=== PATIENT | female | born 1950 | race American Indian/Alaskan Native ===

== ENCOUNTER 2016-05-28 15:51 | Inpatient (IN) | payer BC ==
--- NOTE | 2016-05-28 17:41 | Emergency Department Report ---
Chief Complaint: Neck Pain/Injury Stated Complaint: SOB/NECK PAIN/CHILLS Time Seen by Provider: 05/28/16 17:22 - HPI History of Present Illness: Patient is a 66-year-old female who was sent to ED by her doctor's office Dr. Marlon Melendez to be screened for meningitis. Patient states she starts experiencing neck pain earlier today. Patient states that she is has severe chills all morning. Patient states she went to her primary care physician to be seen and was sent here to the ER. Patient denies nausea/vomiting/chest pain/shortness of breath or any other symptoms. - ROS Review of Systems: As noted in HPI - Exam Vital Signs: Vital Signs 05/28/16 16:29 Temperature 98.9 F Pulse Rate 90 Respiratory 22 Rate Blood Pressure 178/94 O2 Sat by Pulse 98 Oximetry Physical Exam: GENERAL: Alert and oriented x3, no apparent distress, Normal Gait, atraumatic. HEAD: Head is normocephalic and a-traumatic. MOUTH:Mouth is well hydrated and without lesions. Tonsils nonerythematous or swollen, Uvula midline, Tongue not elevated. Mucous membranes are moist. Posterior pharynx clear, no exudate or lesions. Patent airways. NECK: Supple. Non edematous, No carotid bruits. No lymphadenopathy or thyromegaly. No nucal rigidity. full ROM but painful, non tender to palpation. LUNGS: Symetrical with respiration, No wheezing, no rales or crackles, CTAB. HEART: S1, S2 present, regular rate and rhythm without murmur, no rubs, no gallops. ABDOMEN: No organomegaly was noted,Positive bowel sounds, soft, and non- distended. . Nontender to palpation on all Quadrants, NO CVA tenderness. MSE screening note: Focused history and physical exam performed. Due to findings the following was ordered: ED Medical Decision Making - Medical Decision Making Labs ordered. Patient waiting to be seen by ED physician. ED Disposition for MSE Condition: Stable
[2016-05-28 18:31] LABS: Basophils % (Auto) 0.4 % (0.0-1.8); Eosinophils % (Auto) 0.4 % (0.0-4.3); Hematocrit 35.2 % (30.3-42.9); Hemoglobin 11.7 gm/dl (10.1-14.3); Mean Corpuscular HGB Conc 33 % (30-34); Mean Corpuscular Hemoglobin 29 pg (28-32); Mean Corpuscular Volume 86 fl (79-97); Platelet Count 437 K/mm3 (140-440); Red Blood Count 4.07 M/mm3 (3.65-5.03); Red Cell Distribution Width 14.6 % (13.2-15.2); White Blood Count 16.5 K/mm3 (4.5-11.0)
[2016-05-28 18:42] LABS: INR 0.94 (0.87-1.13)
[2016-05-28 18:43] LABS: Partial Thromboplastin Time 32.8 Sec. (24.2-36.6)
[2016-05-28 18:54] LABS: Alanine Aminotransferase 10 units/L (7-56); Albumin 3.8 g/dL (3.9-5); Albumin/Globulin Ratio 0.9 %; Alkaline Phosphatase 102 units/L (35-129); BUN/Creatinine Ratio 16.25; Bilirubin,Total 0.4 mg/dL (0.1-1.2); Blood Urea Nitrogen 13 mg/dL (7-17); Calcium 9.2 mg/dL (8.4-10.2); Carbon Dioxide 24 mmol/L (22-30); Chloride 95.3 mmol/L (98-107); Glucose 67 mg/dL (65-100); Potassium 3.9 mmol/L (3.6-5.0); Sodium 135 mmol/L (137-145)
[2016-05-28 18:57] LABS: Anion Gap 20 mmol/L
[2016-05-29] MEDS ORDERED: ZOFRAN IV ONE (08:32)
[2016-05-29] MEDS ORDERED: MORPHINE IV ONE (08:32)
[2016-05-29] MEDS ORDERED: TORADOL IV ONE (08:34)
--- NOTE | 2016-05-29 08:38 | Emergency Department Report ---
ED Fever HPI - General Chief Complaint: Neck Pain/Injury Stated Complaint: SOB/NECK PAIN/CHILLS Time Seen by Provider: 05/29/16 08:21 Source: patient Exam Limitations: no limitations - History of Present Illness Initial Comments: 66-year-old female with a past medical history hypertension, diabetes, and hyperlipidemia presents to the hospital with complaints of chills, headache, and neck pain since yesterday a.m. Patient states she developed a headache and posterior neck pain that has gradually worsened. Pain radiates down spine. Patient having chills and reports a temperature of 98 at home. Patient was seen and evaluated by Dr. Huerta yesterday and was referred to the ED with a differential of pharyngitis, rule out meningitis secondary to neck pain, question occult bacteremia. She states she does have a cough for several days as well. No complaints of nausea, vomiting, blurred vision, focal weakness, numbness, or head trauma. ED Review of Systems ROS: Stated complaint: SOB/NECK PAIN/CHILLS Other details as noted in HPI Comment: All other systems reviewed and negative Other: Constitutional: As per HPI Eyes: No eye pain visual changes ENT: mild sob Neck: as per hpi Respiratory: Denies wheezing shortness of breath Cardiovascular: Denies chest pain, palpitations, syncope GI: Denies abdominal pain, nausea, vomiting, diarrhea : Denies dysuria Musculoskeletal: as per hpi Skin: Denies rash, lesions, erythema Neurologic: headache Psychiatric: Denies suicidal ideation, hallucinations ED Past Medical Hx - Medications Home Medications: Home Medications Medication Instructions Recorded Confirmed Last Taken Type Atorvastatin Calcium [Lipitor] 20 mg PO QHS 05/29/16 05/29/16 05/28/16 History Dulaglutide [Trulicity] 1.5 mg SQ 05/29/16 05/28/16 History HYDROcodone/APAP 5-325 [[place] 1 each PO Q6HR PRN #20 tablet 05/29/16 Unknown Rx 5/325] Ibuprofen [Motrin] 800 mg PO Q8HR PRN #30 tablet 05/29/16 Unknown Rx Levofloxacin [Levaquin] 750 mg PO QDAY #7 tablet 05/29/16 Unknown Rx Metformin HCl [Fortamet ER] 1,000 mg PO BID 05/29/16 05/29/16 05/28/16 History Valsartan/Hydrochlorothiazide 1 tab PO DAILY 05/29/16 05/29/16 05/28/16 History [Valsartan-Hctz 160-12.5 mg Tab] amLODIPine [Norvasc] 10 mg PO DAILY 05/29/16 05/29/16 05/28/16 History ED Physical Exam - General Limitations: No Limitations - Other Other exam information: General: No limitations, patient is alert in no acute distress Head exam: Atraumatic, normocephalic Eyes exam: Normal appearance, pupils equal reactive to light ENT: Moist mucous membrane, normal oropharynx, no exudate, nasal congestion Neck exam: Normal inspection, full range of motion, no meningismus, bilateral paracervical tenderness however, no nuchal rigidity Respiratory exam: Clear to auscultation bilateral, no wheezes, rales, crackles Cardiovascular: Normal rate and rhythm Abdomen: Soft, nondistended, and nontender, with normal bowel sounds, no rebound, or guarding Extremity: Full range of motion normal inspection no deformity Back: Normal Inspection, full range of motion, no tenderness Neurologic: Alert, oriented x3, cranial nerves intact, no motor or sensory deficit Psychiatric: normal affect, normal mood Skin: Warm, dry, intact ED Course Vital Signs 05/28/16 05/29/16 05/29/16 16:29 00:45 05:38 Temperature 98.9 F 98.1 F 98.0 F Pulse Rate 90 81 88 Respiratory 22 16 16 Rate Blood Pressure 178/94 Blood Pressure 156/79 146/79 [Right] O2 Sat by Pulse 98 99 100 Oximetry 05/29/16 05/29/16 05/29/16 09:11 09:15 09:21 Temperature Pulse Rate Respiratory 18 18 Rate Blood Pressure Blood Pressure [Right] O2 Sat by Pulse 93 Oximetry 05/29/16 05/29/16 09:25 10:00 Temperature Pulse Rate 67 Respiratory 18 11 L Rate Blood Pressure 148/70 Blood Pressure [Right] O2 Sat by Pulse 100 Oximetry - Reevaluation(s) Reevaluation #1: 05/29/16 11:10 pt feels better with morphine, toradol, zofran Reevaluation #2: 05/29/16 11:30 Pt remains pain free. Reoffered LP and declined. - Consultations Consultation #1: 05/29/16 10:[address] Huerta. He states the headache exam patient also had a supple neck with just some paraspinal muscle tenderness however, when she presented to his office it was too late to do further testing so he sent her to the ER for evaluation ED Medical Decision Making - Lab Data Result diagrams: 05/28/16 18:13 05/28/16 18:13 Lab Results 05/28/16 05/28/16 05/28/16 Range/Units 18:13 18:13 18:13 WBC 16.5 H (4.5-11.0) K/mm3 RBC 4.07 (3.65-5.03) M/mm3 Hgb 11.7 (10.1-14.3) gm/dl Hct 35.2 (30.3-42.9) % MCV 86 (79-97) fl MCH 29 (28-32) pg MCHC 33 (30-34) % RDW 14.6 (13.2-15.2) % Plt Count 437 (140-440) K/mm3 Lymph % (Auto) 12.5 L (13.4-35.0) % [place] % (Auto) 5.1 (0.0-7.3) % Eos % (Auto) 0.4 (0.0-4.3) % Baso % (Auto) 0.4 (0.0-1.8) % Lymph # 2.1 (1.2-5.4) K/mm3 [place] # 0.8 (0.0-0.8) K/mm3 Eos # 0.1 (0.0-0.4) K/mm3 Baso # 0.1 (0.0-0.1) K/mm3 Seg Neutrophils % 81.6 H (40.0-70.0) % Seg Neutrophils # 13.5 H (1.8-7.7) K/mm3 PT 12.5 (12.2-14.9) Sec. INR 0.94 (0.87-1.13) APTT 32.8 (24.2-36.6) Sec. Sodium 135 L (137-145) mmol/L Potassium 3.9 (3.6-5.0) mmol/L Chloride 95.3 L (98-107) mmol/L Carbon Dioxide 24 (22-30) mmol/L Anion Gap 20 mmol/L BUN 13 (7-17) mg/dL Creatinine 0.8 (0.7-1.2) mg/dL Estimated GFR > 60 ml/min BUN/Creatinine Ratio 16.25 % Glucose 67 (65-100) mg/dL Calcium 9.2 (8.4-10.2) mg/dL Total Bilirubin 0.4 (0.1-1.2) mg/dL AST 13 (5-40) units/L ALT 10 (7-56) units/L Alkaline Phosphatase 102 (35-129) units/L Total Protein 8.0 (6.3-8.2) g/dL Albumin 3.8 L (3.9-5) g/dL Albumin/Globulin Ratio 0.9 % Urine Color (Yellow) Urine Turbidity (Clear) Urine pH (5.0-7.0) Ur Specific [place] (1.003-1.030) Urine Protein (Negative) mg/dL Urine Glucose (UA) (Negative) mg/dL Urine Ketones (Negative) mg/dL Urine Blood (Negative) Urine Nitrite (Negative) Urine Bilirubin (Negative) Urine Urobilinogen (<2.0) mg/dL Ur Leukocyte Esterase (Negative) Urine WBC (Auto) (0.0-6.0) /HPF Urine RBC (Auto) (0.0-6.0) /HPF U Epithel Cells (Auto) (0-13.0) /HPF Hyaline Casts /LPF Urine Mucus /HPF 05/29/16 Range/Units 10:30 WBC (4.5-11.0) K/mm3 RBC (3.65-5.03) M/mm3 Hgb (10.1-14.3) gm/dl Hct (30.3-42.9) % MCV (79-97) fl MCH (28-32) pg MCHC (30-34) % RDW (13.2-15.2) % Plt Count (140-440) K/mm3 Lymph % (Auto) (13.4-35.0) % [place] % (Auto) (0.0-7.3) % Eos % (Auto) (0.0-4.3) % Baso % (Auto) (0.0-1.8) % Lymph # (1.2-5.4) K/mm3 [place] # (0.0-0.8) K/mm3 Eos # (0.0-0.4) K/mm3 Baso # (0.0-0.1) K/mm3 Seg Neutrophils % (40.0-70.0) % Seg Neutrophils # (1.8-7.7) K/mm3 PT (12.2-14.9) Sec. INR (0.87-1.13) APTT (24.2-36.6) Sec. Sodium (137-145) mmol/L Potassium (3.6-5.0) mmol/L Chloride (98-107) mmol/L Carbon Dioxide (22-30) mmol/L Anion Gap mmol/L BUN (7-17) mg/dL Creatinine (0.7-1.2) mg/dL Estimated GFR ml/min BUN/Creatinine Ratio % Glucose (65-100) mg/dL Calcium (8.4-10.2) mg/dL Total Bilirubin (0.1-1.2) mg/dL AST (5-40) units/L ALT (7-56) units/L Alkaline Phosphatase (35-129) units/L Total Protein (6.3-8.2) g/dL Albumin (3.9-5) g/dL Albumin/Globulin Ratio % Urine Color Yellow (Yellow) Urine Turbidity Clear (Clear) Urine pH 5.0 (5.0-7.0) Ur Specific [place] 1.015 (1.003-1.030) Urine Protein <15 mg/dl (Negative) mg/dL Urine Glucose (UA) Neg (Negative) mg/dL Urine Ketones Neg (Negative) mg/dL Urine Blood Neg (Negative) Urine Nitrite Neg (Negative) Urine Bilirubin Neg (Negative) Urine Urobilinogen < 2.0 (<2.0) mg/dL Ur Leukocyte Esterase Mod (Negative) Urine WBC (Auto) 12.0 H (0.0-6.0) /HPF Urine RBC (Auto) 7.0 (0.0-6.0) /HPF U Epithel Cells (Auto) 6.0 (0-13.0) /HPF Hyaline Casts 1 /LPF Urine Mucus Few /HPF strep neg, influenza neg - Radiology Data Radiology results: report reviewed (ct head neg) cxr: neg - Medical Decision Making At this time I do not believe the patient has meningitis especially bacterial meningitis. She is nontoxic appearing. No documented fever at home or here. Patient does not have nuchal rigidity just some musculoskeletal paracervical spinal muscle pain. I discussed pros and cons of lumbar puncture and family is in agreement for no LP at this time. Patient has No neurologic symptoms or vomiting. Headache was not severe. Patient does have some cough and URI symptoms as well. Patient does have a slight leukocytosis and after consultation with her primary care doctor antibiotics will be prescribed. Close follow-up and evaluation will be recommended. - Differential Diagnosis SAH, viral syndrome, meningitis, pneumonia Critical Care Time: No Critical care attestation.: If time is entered above; I have spent that time in minutes in the direct care of this critically ill patient, excluding procedure time. ED Disposition Clinical Impression: Viral syndrome, Ethmoid sinusitis Disposition: DISCHARGED TO HOME OR SELFCARE Is pt being admited?: No Does the pt Need Aspirin: No Condition: Stable Instructions: Viral Syndrome (ED), Sinusitis (ED) Additional Instructions: You have provided a copy of your laboratory results and CT results. You have declined a lumbar puncture at this time. Take the medications as prescribed. However, if symptoms worsen please go to the closest ER and presents to the provided results from urine ER workup today. Prescriptions: HYDROcodone/APAP 5-325 [Spring 5/325] 1 each PO Q6HR PRN #20 tablet PRN Reason: Pain Ibuprofen [Motrin] 800 mg PO Q8HR PRN #30 tablet PRN Reason: Pain Levofloxacin [Levaquin] 750 mg PO QDAY #7 tablet Referrals: HORACIO HUERTA MD [Primary Care Provider] - 2-3 Days Time of Disposition: 11:36
--- NOTE | 2016-05-29 08:59 | XRay Report ---
CHEST 2 VIEWS INDICATION: Cough, chills. COMPARISON: None similar. FINDINGS: PA and lateral chest radiographs demonstrate normal cardiomediastinal silhouette. Clear lungs. Slight aortic knob calcifications. Right hemidiaphragm minimally elevated. Various bony degenerative changes, including lower thoracic spine osteophytosis and possible right shoulder rotator cuff pathology. Lateral view limited due to motion artifact. CONCLUSION: No acute disease in the chest. Thank you for the opportunity to participate in this patient's care.
--- NOTE | 2016-05-29 09:46 | Cat Scan Report ---
CT HEAD WITHOUT CONTRAST INDICATION: Headache, neck pain. COMPARISON: None similar. FINDINGS: Noncontrast head CT demonstrates normal ventricles and sulci without acute or recent infarct, hemorrhage, mass effect or midline shift. No abnormal extra-axial fluid collections. Posterior fossa structures and basilar cisterns appear within normal limits. Symmetric eye globes. Mild nasal septal deviation. Slight bilateral ethmoid sinusitis and some nasal passage congestion in this patient with approximately 3.3 x 1.7 cm adenoids that may be directly visualized. Clear remainder imaged paranasal sinuses and mastoid air cells. Partially empty sella. Intact calvarium. Normal overlying scalp soft tissues. Few radiopaque dental material/dentures incidentally noted. CONCLUSION: No acute intracranial CT abnormality with few other findings, as described. Please correlate. Thank you for the opportunity to participate in this patient's care.
--- NOTE | 2016-05-29 09:56 | Admit Criteria Form ---
Admission Criteria Documentation: FEBRILE ILLNESS, WITHOUT FOCAL INFECTION Clinical Indications for Admission to Inpatient Care (Place 'X' for any and all applicable criteria): Admission is indicated for ANY ONE of the following (1)(2)(3): [ ] I. Bacteremia [X ]II. Suspected or identified specific infection requiring hospitalization (eg, meningitis, endocarditis) [ ]III. Hemodynamic instability [ ]IV. Altered mental status [ ]V. Failure or unavailability of outpatient antimicrobial treatment [ ]. Hypoxemia [ ]VII. Seizures [ ]VIII. High-risk febrile neutropenia [ ]IX. Need for parenteral antibiotic in patient who is likely to abuse vascular access device (eg, injection drug user) [A](7) [ ]X. Temperature greater than 104.9 degrees F (40.5 degrees C) (oral) [ ]XI. Inpatient admission required rather than observation care because of ANY ONE of the following: [ ]a) Specific infection identified that is too severe for outpatient treatment or observation care trial [ ]b) Metabolic disorder (eg, hypoglycemia, hyperglycemia, metabolic acidosis) that is severe or persistent [ ]c) Temperature greater than 103.1 degrees F (39.5 degrees C) ( oral) that is not responsive to observation care treatment [ ]d) IV fluid to replace significant ongoing (eg, for over 24 hours) losses (> 3 L/m2 per day) [ ]e) Supplemental oxygen or respiratory treatments for over 24 hours that is performable only in acute inpatient setting [ ]f) Parenteral nutrition regimen need that must be implemented on inpatient basis [ ]g) Strict or protective (eg, laminar flow) isolation [ ]h) Other condition, treatment or monitoring requiring inpatient admission Extended stay beyond goal length of stay may be needed for(1)(3) [ ]a) Sepsis or septic shock(22) [ ]b) Positive blood cultures [ ]c) Insufficient oral intake [ ]d) High-risk febrile neutropenia(29)(30) [ ]e) Continued fever and clinical instability [ ]f) Clinically active comorbid illness (e.g,heart failure, renal failure , diabetes) The original [facility] content created by [facility] has been revised. The portions of the content which have been revised are identified through the use of italic text or in bold, and [employer] has neither reviewed nor approved the modified material. All other unmodified content is copyright [facility]. Please see references footnoted in the original [facility] edition 2016 Admission Criteria Met: Pending
[2016-05-29 10:52] LABS: Bilirubin,Urine NEG (Negative); Blood,Urine NEG (Negative); Ketones,Urine NEG (Negative); Leukocyte Esterase,Urine MOD (Negative); Mucus,Urine FEW /HPF; Nitrite,Urine NEG (Negative); Protein,Urine <15 mg/dL mg/dL (Negative); Urobilinogen,Urine < 2.0 mg/dL (<2.0)
[2016-05-29 13:43] LABS: Glucose,CSF 85 mg/dL
[2016-05-29 13:47] LABS: Appearance,CSF Clear
[2016-05-29 14:30] LABS: Appearance,CSF Clear; White Blood Cell,CSF 0 /mm3 (1-10)
[2016-05-29 14:31] LABS: White Blood Cell,CSF 5 /mm3 (1-10)
--- NOTE | 2016-05-29 14:43 | Admit Criteria Form ---
Admission Criteria Documentation: FEVER Clinical Indications for Inpatient Care (Place 'X' for any and all applicable criteria): Ongoing inpatient care may be indicated for fever with ANY ONE of the following[ D] (5)(27)(28)(29)(30)(31): [ ]I. Bacteremia [ ]II. Evidence of significant systemic illness as indicated by ANY ONE of the following: [ ]a) Persistently high temperatures greater than 103.1 degrees F ( 39.5 degrees C) (oral) [ ]b) New-onset hypoxia [ ]c) Hemodynamic instability [ ]d) Mental status changes [ ]e) Decreased urine output due to developing renal insufficiency [ ]f) New focal neurologic deficit (eg, stroke) [ ]g) Seizures [ ]h) Rigors [ ]i) Dehydration or hypovolemia [ ]j) Inadequate oral intake [ ]III. Patient in the immediate postoperative period with ANY ONE of the following (E)(23)(24): [ ]a) Evidence of specific localizing infection requiring ongoing inpatient evaluation or treatment (eg,abscess, severe pneumonia, wound infection ) [ ]b) Known or suspected cause of fever requiring ongoing inpatient evaluation or treatment (eg, DVT) [ ]c) Evidence of malignant hyperthermia (eg, unexplained tachycardia and muscle rigidity after depolarizing muscular blocking agent or inhaled anesthetic agent) [X ]IV. Suspected cause requiring acute care (eg, endocarditis, meningitis) [ ]V. High suspicion of bacteremia as indicated by severe constitutional symptoms in patient at high risk as indicated by ANY ONE of the following: [ ]a) Immunocompromised state [D](22) [ ]b) Age <3 years or >65 years [ ]c) Severe comorbidities (eg, poorly controlled diabetes, severe COPD) [ ]. High suspicion for fungal infection as indicated by ANY ONE of the following (22)(25): [ ]a) Febrile neutropenia (WBC <500/mm3 (0.5 X 109/L)) for >4 days despite broad spectrum antibiotics [ ]b) Imaging findings suggestive of fungal infection [ ]c) Immunocompromised state [ ]d) Immunocompromised patient colonized with Aspergillus species [ ]VII. Evidence of infection of medical devices such as implanted catheters or exposed hardware [ ]VIII. Suspected neuroleptic malignant syndrome as evidenced by ALL of the following (15): [ ]a) Recent use of neuroleptic medication (eg, haloperidol, prochlorperazine, metoclopramide) [ ]b) New-onset muscle rigidity Extended stay beyond goal length of stay for primary condition may be needed until ALL of the following are present(16)(17)(18)(19)(20)(21): [ ]a) Temperature status acceptable as indicated by ANY ONE of the following: [ ]i) Temp <38.1C (100.5 F) (oral) [ ]ii) Temp as expected for disease process and care performable at next level of care [ ]b) Hemodynamic stability [ ]c) Cultures negative or infection identified and under adequate treatment [ ]d) Behavior or mental status abnormalities absent or manageable at lower level of care (Also use Mental Status Change Criteria Form) for further information. [ ]e) Medical comorbidities absent or manageable at a lower level of care The original [facility] content created by [facility] has been revised. The portions of the content which have been revised are identified through the use of italic text or in bold, and [facility] has neither reviewed nor approved the modified material. All other unmodified content is copyright [facility]. Please see references footnoted in the original [facility] edition 2016 Admission Criteria Met: Yes
[2016-05-29 14:59] LABS: Basophils CSF 0 %; CSF Diff Status Complete
[2016-05-29 15:01] LABS: Basophils CSF 0 %; CSF Diff Status Complete
--- NOTE | 2016-05-29 15:15 | Procedure Note ---
Date of procedure: 05/29/16 Pre-op diagnosis: headache, mental status changes Post-op diagnosis: same Procedure: lumbar puncture under flouroscopy Anesthesia: local Surgeon: KELLEN NEVILLE Estimated blood loss: none Pathology: list (4 tubes) Specimen disposition: to lab Condition: stable Disposition: other (back to ER)
--- NOTE | 2016-05-29 16:34 | Event Note ---
Date: 05/29/16 See H/p in reports Viral syndrome TIA HTN IDDM HLD
[2016-05-29] MEDS ORDERED: ASPIRIN PO ONE (16:40)
[2016-05-29] MEDS ORDERED: NON-FORMULARY (Valsartan/Hydrochlorothiazide [Valsartan-Hctz 160-12.5 Mg Tab] 1 TAB) PO SCH (16:45)
[2016-05-29] MEDS ORDERED: ROCEPHIN 2,000 MG in NACL 0.9% 50 ML IV SCH (17:00)
[2016-05-29] MEDS: DIOVAN PO SCH (17:22)
[2016-05-29] MEDS: GLUCOPHAGE XR PO SCH (17:23)
[2016-05-29] MEDS: NORVASC PO SCH (17:26)
[2016-05-29] MEDS: HCTZ PO SCH (17:37)
[2016-05-29] MEDS ORDERED: ROCEPHIN/NS 2 GM/100 ML 100 ML IV SCH (18:00)
--- NOTE | 2016-05-29 19:04 | History and Physical Report ---
CHIEF COMPLAINT: 1. Fever and chills of two days' duration. 2. Neck pain and neck stiffness. 3. Dysarthria for two days. HISTORY OF PRESENT ILLNESS: The patient is a 66-year-old -[place] female with history of type 2 diabetes, hypertension, and hyperlipidemia who comes to the Emergency Room for chills, headache, and neck stiffness since yesterday morning. The patient went to her PCP, Dr. Campos for fever and chills. Sent by him for for possible meningitis and possible bacteremia. She does have cough for several days. No complaints of nausea, vomiting, or blurred vision. No diplopia. No pain. Fever and chills and slight dysarthria for two days. PAST MEDICAL HISTORY: Significant for hypertension, diabetes, and hyperlipidemia. CURRENT MEDICATIONS: Atorvastatin 20 mg p.o. at nighttime, Trulicity 1.5 mg subcutaneous daily, [place] 5/325 q.6 p.r.n., Motrin 800 mg p.o. q.8, Levaquin 750 p.o. daily, metformin 1000 b.i.d., valsartan/hydrochlorothiazide 160/12.5 daily, and amlodipine 10 mg p.o. daily. PAST SURGICAL HISTORY: None. FAMILY HISTORY: Significant for hypertension. SOCIAL HISTORY: Does not smoke. No alcohol. No recreational drugs. REVIEW OF SYSTEMS: Significant for fever, chills, and dysarthria. CONSTITUTIONAL: Fever and chills for two to three days. Slight cough present. HEENT: No sore throat. No postnasal drip. CARDIOVASCULAR AND RESPIRATORY: No shortness of breath. No chest pain. No palpitation. NECK: Show neck stiffness or neck pain present. GASTROINTESTINAL: No nausea, no vomiting, no diarrhea. GENITOURINARY SYSTEM: No dysuria, no flank pain. MUSCULOSKELETAL SYSTEM: No joint pain, no muscle pains. CENTRAL NERVOUS SYSTEM: No syncope, no seizures. A 14-point review of systems done essentially negative. PHYSICAL EXAMINATION: GENERAL: Elderly female, cooperative during examination. VITAL SIGNS: Temperature 98.9, pulse is 90, respirations 22, blood pressure 178/94. HEENT: Unremarkable. Pupils equal and reactive. NECK: Supple. No lymphadenopathy. No thyromegaly. LUNGS: Clear to auscultation and percussion. Good air entry. CARDIOVASCULAR: S1, S2 heard. No gallop, no murmur, no rub. Apical impulse in the left fifth intercostal space and midclavicular line. ABDOMEN: Soft and benign. No hepatosplenomegaly. No guarding. No rigidity. Hernial orifices are normal. EXTREMITIES: Good pedal pulses. No pedal edema. CENTRAL NERVOUS SYSTEM: Alert and oriented x4. Nonfocal focal exam. Neck stiffness present. SKIN: Normal. LABORATORY DATA: Significant for white count of 16,500, H and H 11.7 and 35.2, platelet count is 437,000. Protime is 12.5. INR is 0.94. Sodium 135 slightly low. Potassium is 3.9, BUN and creatinine 13 and 0.8. Urine is negative except for white blood cells, which are 20 in number. CSF, few red blood cells, but otherwise no wbc's. ASSESSMENT AND PLAN: 1. Viral syndrome. The patient will be admitted for IV fluids and observation. 2. Dysarthria, probably transient ischemic attack with a workup for transient ischemic attack. 3. Hypertension. Continue valsartan 160/12.5 daily and amlodipine 10 mg daily. 4. Type 2 diabetes. Continue metformin 1000 b.i.d. and Trulicity 1.5 mg subcutaneous daily. 5. Deep venous thrombosis prophylaxis, Lovenox 40 mg subcutaneous daily. 6. viral syndrome and neck stiffness and dysarthria. IV fluids and Rocephin. 7. Urinary tract infection with Rocephin 2 g IV piggyback q.24. Probable admission for 24-48 hours. JOB# [id number] VSM/NTS ENEDELIA
[2016-05-29] MEDS ORDERED: NON-FORMULARY (Metformin Hcl [Fortamet Er] 1,000 MG) PO SCH (22:00)
[2016-05-30] MEDS: NOVOLOG SUB-Q SCH ×3 (00:18→12:46)
--- NOTE | 2016-05-30 08:32 | Fluoroscopy Report ---
FLUOROSCOPY LUMBAR PUNCTURE: HISTORY: Low grade fever, headache, stuttering speech, evaluate for meningitis. FINDINGS: Informed consent was obtained. Sterile technique was utilized. 1% lidocaine for skin anesthesia. Using fluoroscopy guidance, a spinal needle was advanced into the L3-4 interspace. There was spontaneous return of blood-tinged CSF which cleared quickly. Approximately 5 cc of CSF fluid was collected in 4 tubes. Samples were sent to the lab for analysis. The patient tolerated the procedure without difficulty. IMPRESSION: Successful lumbar puncture under fluoroscopy.
[2016-05-30] MEDS: GLUCOPHAGE XR PO SCH (08:42)
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
[2016-05-30] MEDS ORDERED: NON-FORMULARY (Dulaglutide [Trulicity] 1.5 MG) SQ SCH (10:00)
[2016-05-30] MEDS ORDERED: LOVENOX SUB-Q SCH (10:00)
[2016-05-30] MEDS: DIOVAN PO SCH (10:54)
[2016-05-30] MEDS: HCTZ PO SCH (10:55)
[2016-05-30] MEDS: NORVASC PO SCH (10:55)
[2016-05-30 11:47] VITALS: BP 140/70
== END 2016-05-30 13:42 | disposition home or self-care (01) | DRG 153 ==
LOC: ED 15:51 → 3A 05-29 14:28
PROVIDERS: ADMIT Internal Medicine; ATTEND Internal Medicine
PROC: 009U3ZX Drainage of Spinal Canal, Percutaneous Approach, Diagnostic (ICD-10-PCS; principal; 2016-05-29)
PROC: B01B1ZZ Fluoroscopy of Spinal Cord using Low Osmolar Contrast (ICD-10-PCS; 2016-05-29)
DX: J01.20 Acute ethmoidal sinusitis, unspecified (principal); N39.0 Urinary tract infection, site not specified; B34.9 Viral infection, unspecified; I10 Essential (primary) hypertension; E11.9 Type 2 diabetes mellitus without complications; E78.5 Hyperlipidemia, unspecified; R47.82 Fluency disorder in conditions classified elsewhere; R47.1 Dysarthria and anarthria; Z79.899 Other long term (current) drug therapy; Z82.49 Family history of ischemic heart disease and other diseases of the circulatory system
CPT/HCPCS: 36415; 62270; 70450; 71020; 77003; 80053; 81001; 82947; 82962; 83036; 84160; 85025; 85610; 85730; 87040; 87086; 87116; 87400; 87430; 89051; 96374; 96375; A9270-GY; J0696; J1650; J1815; J1885; J2270; J2405